=== PATIENT | female | born 1995 | race Caucasian/White ===

== ENCOUNTER 2016-10-24 20:15 | Emergency (ER) | payer MEDICAID ==
[2016-10-25 00:03] VITALS: BP 118/72
== END 2016-10-25 00:03 | disposition home or self-care (01) ==
LOC: ED 20:15
DX: F10.129 Alcohol abuse with intoxication, unspecified (principal)
CPT/HCPCS: J7030

== ENCOUNTER 2017-06-11 06:34 | Emergency (ER) | payer SELFPAY ==
[~2017-06-11] VITALS: Ht 152.4 cm; Wt 61.9 kg
[2017-06-11 06:43] VITALS: Ht 152.4 cm; Wt 61.9 kg
[2017-06-11 07:52] LABS: BASOPHIL % 0.4 % (0-2); PLATELET COUNT 391 x10^3mcL (130-400)
[2017-06-11 07:53] LABS: RED CELL DISTRIBUTION WIDTH 14.9 % (11.5-14.5)
[2017-06-11 09:04] LABS: CALCIUM 8.7 mg/dL (8.5-10.1); CARBON DIOXIDE 26.7 mmol/L (21-32); CHLORIDE SERUM 104 mmol/L (98-107); CREATININE SERUM 0.5 mg/dL (0.6-1.0); GFR1 > 60 mL/min; GLUCOSE SERUM 112 mg/dL (74-106); POTASSIUM SERUM 4.2 mmol/L (3.5-5.1); SODIUM SERUM 139 mmol/L (136-145)
[2017-06-11 09:08] LABS: ALKALINE PHOSPHATASE 70 U/L (46-116); ALT/SGPT 30 U/L (14-59); AST/SGOT 19 U/L (15-37); BILIRUBIN TOTAL 0.6 mg/dL (0.20-1.00); LIPASE 80 IU/L (73-393); TOTAL PROTEIN, SERUM 7.8 g/dL (6.4-8.2)
[2017-06-11 11:21] VITALS: BP 114/67
== END 2017-06-11 11:21 | disposition home or self-care (01) ==
LOC: ED 06:34
PROVIDERS: Emergency Medicine Emergency Medical Services
DX: K52.9 Noninfective gastroenteritis and colitis, unspecified (principal)
CPT/HCPCS: J1885; J2405; J7030